=== PATIENT | female | born 1985 | race Caucasian/White ===

== ENCOUNTER 2018-04-12 08:38 | Emergency (ER) | payer MEDICAID, OTHER ==
--- NOTE | 2018-04-12 10:00 | RAD ---
THREE VIEWS OF THE RIGHT FOOT: DATE: 04/12/18. COMPARISON: 02/16/08 HISTORY: Shooting pains in the right heel extending into the calf. FINDINGS: There is enthesophyte formation at the origin of the plantar aponeurosis. There is evidence of prior fracture of the proximal right 5th metatarsal shaft. There is mild degenerative change at the 1st m etatarsal phalangeal joint. There is no acute fracture or evidence of dislocation seen. IMPRESSION: Chronic findings as described above. POS: [facility]
== END 2018-04-12 09:45 | disposition home or self-care (01) ==
LOC: ERS 08:38
DX: M72.2 Plantar fascial fibromatosis (principal); L02.611 Cutaneous abscess of right foot; K29.70 Gastritis, unspecified, without bleeding; K58.9 Irritable bowel syndrome, unspecified; E66.9 Obesity, unspecified; J45.909 Unspecified asthma, uncomplicated; F41.9 Anxiety disorder, unspecified; F31.9 Bipolar disorder, unspecified; F25.9 Schizoaffective disorder, unspecified; Z87.891 Personal history of nicotine dependence

== ENCOUNTER 2018-07-29 15:52 | Emergency (ER) | payer MEDICAID, OTHER ==
[2018-07-29] MEDS ORDERED: Ketorolac Tromethamine 30 MG/ML VIAL ONE (16:31)
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
== END 2018-07-29 17:11 | disposition home or self-care (01) ==
LOC: ERS 15:52
DX: S16.1XXA Strain of muscle, fascia and tendon at neck level, initial encounter (principal); K21.9 Gastro-esophageal reflux disease without esophagitis; K58.9 Irritable bowel syndrome, unspecified; J45.909 Unspecified asthma, uncomplicated; E66.9 Obesity, unspecified; F31.9 Bipolar disorder, unspecified; F41.9 Anxiety disorder, unspecified; F25.9 Schizoaffective disorder, unspecified; F17.290 Nicotine dependence, other tobacco product, uncomplicated; V43.92XA Unspecified car occupant injured in collision with other type car in traffic accident, initial encounter; Z79.899 Other long term (current) drug therapy
CPT/HCPCS: 72125; 96372; J1885

== ENCOUNTER 2018-12-21 20:57 | Emergency (ER) | payer MEDICAID, OTHER | END 2018-12-21 22:12 | disposition home or self-care (01) | LOC: ERS 20:57 | DX: K03.81 Cracked tooth (principal); E66.9 Obesity, unspecified; J45.909 Unspecified asthma, uncomplicated; L40.9 Psoriasis, unspecified; F41.9 Anxiety disorder, unspecified; F31.9 Bipolar disorder, unspecified; F17.290 Nicotine dependence, other tobacco product, uncomplicated; K21.9 Gastro-esophageal reflux disease without esophagitis | CPT/HCPCS: 99282 ==

== ENCOUNTER 2019-06-20 18:52 | Emergency (ER) | payer OTHER ==
[2019-06-20 19:13] LABS: #Basophils 0.1 thou/uL (0.0-0.2); #Eosinphils 0.2 thou/uL (0.0-0.7); #Lymphocytes 2.9 thou/uL (1.20-3.40); #Neutrophils 7.8 thou/uL (1.40-6.50); %Basophils 0.5 % (0.0-1.0); %Eosinophils 1.5 % (0.0-10.0); %Lymphocytes 24.1 % (21.0-51.0); %Monocytes 8.4 % (0.0-10.0); %Neutrophils 65.4 % (42.0-75.0); Hemoglobin 14.1 g/dL (12.0-16.0); Mean Corpuscular HGB CONC 33.3 g/dL (32.0-36.0); Mean Corpuscular Hemoglobin 29.3 pg (27.0-31.0); Mean Corpuscular Volume 88.1 fL (78.0-98.0); Mean Platelet Volume 11.4 fL (7.4-10.4); Platelet Count 217 thou/uL (130-400); RBC Distribution Width 13.1 % (11.5-14.5); White Blood Cell (WBC) Count 11.9 thou/uL (4.8-10.8)
[2019-06-20 19:33] LABS: ALT (SGPT) 27 U/L (8-55); AST (SGOT) 21 U/L (5-34); Albumin 4.3 g/dL (3.5-5.0); Alkaline Phosphatase 50 U/L (40-150); Anion Gap 16 mmol/L (10-20); BUN (Urea Nitrogen) 13 mg/dL (7.0-18.7); Bilirubin, Total 0.4 mg/dL (0.2-1.2); Calc. Creatinine Clearance 0 mL/min (70-130); Calcium 9.7 mg/dL (7.8-10.44); Carbon Dioxide 19 mmol/L (22-29); Chloride 106 mmol/L (98-107); Estimated GFR-MDRD 81; Globulin 2.7 g/dL (2.4-3.5); Glucose 102 mg/dL (70-105); Potassium 3.6 mmol/L (3.5-5.1); Sodium 137 mmol/L (136-145)
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
[2019-06-20] MEDS ORDERED: Ketorolac Tromethamine 30 MG/ML VIAL ONE (19:39)
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
[2019-06-20] MEDS ORDERED: Acetaminophen/Codeine 30-300mg Tablet ONE (21:06)
--- NOTE | 2019-06-21 12:13 | EKG ---
Test Reason : ER Blood Pressure : / mmHG Vent. Rate : 101 BPM Atrial Rate : 101 BPM P-R Int : 144 ms QRS Dur : 096 ms QT Int : 378 ms P-R-T Axes : 035 004 008 degrees QTc Int : 490 ms Poor data quality, interpretation may be adversely affected Sinus tachycardia Minimal voltage criteria for LVH, may be normal variant Borderline ECG Confirmed by CORINA OLIVO D.O. ([id number]), scientific editor CARLOS LIANG ([id number] on 06/21/2019 12:12:59 PM Referred By: Confirmed By:CORINA OLIVO D.O.
== END 2019-06-20 21:15 | disposition home or self-care (01) ==
LOC: ERS 18:52
DX: K80.50 Calculus of bile duct without cholangitis or cholecystitis without obstruction (principal); I10 Essential (primary) hypertension; E11.9 Type 2 diabetes mellitus without complications; Z79.84 Long term (current) use of oral hypoglycemic drugs; Z79.899 Other long term (current) drug therapy
CPT/HCPCS: 70450; 71250; 72125; 74177; 80053; 85025; 93005; 96374; G0390; J1885

== ENCOUNTER 2019-09-30 15:50 | Emergency (ER) | payer OTHER ==
[2019-09-30 17:13] LABS: #Eosinphils 0.1 thou/uL (0.0-0.7); #Lymphocytes 0.5 thou/uL (1.20-3.40); #Monocytes 0.8 thou/uL (0.11-0.59); #Neutrophils 6.9 thou/uL (1.40-6.50); %Basophils 0.3 % (0.0-1.0); %Eosinophils 1.6 % (0.0-10.0); %Lymphocytes 6.3 % (21.0-51.0); %Monocytes 9.9 % (0.0-10.0); %Neutrophils 81.9 % (42.0-75.0); Hemoglobin 13.8 g/dL (12.0-16.0); Mean Corpuscular HGB CONC 34.8 g/dL (32.0-36.0); Mean Corpuscular Hemoglobin 30.5 pg (27.0-31.0); Mean Corpuscular Volume 87.6 fL (78.0-98.0); Mean Platelet Volume 11.6 fL (7.4-10.4); Platelet Count 180 thou/uL (130-400); RBC Distribution Width 12.7 % (11.5-14.5); Red Blood Cell (RBC) Count 4.53 mill/uL (4.20-5.40); White Blood Cell (WBC) Count 8.5 thou/uL (4.8-10.8)
--- NOTE | 2019-09-30 17:13 | RAD ---
RADIOGRAPH CHEST 1 VIEW: DATE: HISTORY: Cough and chest pain FINDINGS: There is no airspace density, pulmonary edema, or pneumothorax. The lateral costophrenic angles are n ot effaced. IMPRESSION: No acute pulmonary findings.
[2019-09-30] MEDS ORDERED: Acetaminophen 500 MG TAB ONE (17:33)
[2019-09-30 17:40] LABS: ALT (SGPT) 26 U/L (8-55); AST (SGOT) 20 U/L (5-34); Albumin 4.3 g/dL (3.5-5.0); Alkaline Phosphatase 60 U/L (40-110); Anion Gap 13 mmol/L (10-20); BUN (Urea Nitrogen) 9 mg/dL (7.0-18.7); Bilirubin, Total 0.4 mg/dL (0.2-1.2); CK (CPK) 164 U/L (29-168); Calc. Creatinine Clearance 0 mL/min (70-130); Calcium 8.9 mg/dL (7.8-10.44); Carbon Dioxide 25 mmol/L (22-29); Chloride 101 mmol/L (98-107); Estimated GFR-MDRD 90; Glucose 111 mg/dL (70-105); Potassium 3.6 mmol/L (3.5-5.1); Protein, Total 7.3 g/dL (6.0-8.3); Sodium 135 mmol/L (136-145)
== END 2019-09-30 18:32 | disposition home or self-care (01) ==
LOC: ERS 15:50
DX: J10.1 Influenza due to other identified influenza virus with other respiratory manifestations (principal); R07.89 Other chest pain; J45.909 Unspecified asthma, uncomplicated; F25.0 Schizoaffective disorder, bipolar type; E66.9 Obesity, unspecified; F41.9 Anxiety disorder, unspecified; F32.9 Major depressive disorder, single episode, unspecified; F17.290 Nicotine dependence, other tobacco product, uncomplicated; Z79.899 Other long term (current) drug therapy
CPT/HCPCS: 71045; 80053; 82550; 84484; 85025; 85379; 87804; 93005; 94760

== ENCOUNTER 2020-01-16 00:33 | Emergency (ER) | payer OTHER ==
[2020-01-16] MEDS ORDERED: cefTRIAXone\\ROCEPHIN 1 GM VIAL ONE (01:03)
[2020-01-16] MEDS ORDERED: Ketorolac Tromethamine 30 MG/ML VIAL ONE (01:03)
[2020-01-16] MEDS ORDERED: Lidocaine 1% PF 5 ML VIAL ONE (01:03)
== END 2020-01-16 01:25 | disposition home or self-care (01) ==
LOC: ERS 00:33
DX: K03.81 Cracked tooth (principal); K02.9 Dental caries, unspecified; E66.9 Obesity, unspecified; K58.9 Irritable bowel syndrome, unspecified; J45.909 Unspecified asthma, uncomplicated; F41.9 Anxiety disorder, unspecified; F31.9 Bipolar disorder, unspecified; F25.9 Schizoaffective disorder, unspecified; F17.290 Nicotine dependence, other tobacco product, uncomplicated; Z79.899 Other long term (current) drug therapy
CPT/HCPCS: 96372; 99282; J0696; J1885; J2001

== ENCOUNTER 2020-09-05 10:36 | Emergency (ER) | payer OTHER ==
[2020-09-05] MEDS ORDERED: Dexamethasone 10 MG/ML VIAL ONE (11:56)
[2020-09-05 18:07] LABS: SARS-CoV-2 MS2 Positive; SARS-CoV-2 N Gene Negative; SARS-CoV-2 S Gene Negative; SARS-CoV-2 by NAA Not Detected (NotDetected); SARS-CoV-2 orf1ab Negative
== END 2020-09-05 13:20 | disposition home or self-care (01) ==
LOC: ERS 10:36
DX: J06.9 Acute upper respiratory infection, unspecified (principal); Z20.828 Contact with and (suspected) exposure to other viral communicable diseases; K02.9 Dental caries, unspecified; K21.9 Gastro-esophageal reflux disease without esophagitis; J45.909 Unspecified asthma, uncomplicated; F17.210 Nicotine dependence, cigarettes, uncomplicated
CPT/HCPCS: 87635; 87804; 99284; J1100; U0003